=== PATIENT | female | born 1990 | race Hispanic/Latino ===

== ENCOUNTER → 2017-06-07 | Outpatient (CLI) | payer OTHER ==
[~2017-06-07] MED LIST: COLA100C5 PO; IRON18TA2 PO; MIRA3350 PO; OXYC-517 PO; PRENTAB9 PO
--- NOTE | 2017-06-07 13:46 | REP ---
MRI PELVIS: MRI pelvis performed utilizing multiple axial, sagittal, and coronal sequences without IV contrast. Patient has complete placenta previa with a history of two prior sections and this study is performed to evaluate the placenta. The fetus is located in the fundus, in vertex position. Placenta is inferiorly located and completely covers the internal cervical os consistent with complete placenta previa. The bulk of the placenta extends anteriorly along the anterior lower uterine segment, with a portion also extending along the posterior lower uterine segment. The placenta extends further superiorly on the left than on the right. The placenta is heterogeneous in signal with several areas of hypointense bands of signal. There are multiple areas of disruption of the myometrium and myometrial contour along the outer margins of the placenta. 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 There is no definite invasion of adjacent pelvic structures by placenta tissue. 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 Signed by Rome Frazier MD 06/07/2017 05:08 P
== END ==
LOC: M RAD 06:46
PROVIDERS: ATTEND Obstetrics & Gynecology
DX: O44.03 Complete placenta previa NOS or without hemorrhage, third trimester (principal)

== ENCOUNTER 2017-06-30 15:16 | Outpatient (CLI) | payer OTHER ==
[~2017-06-30] VITALS: Ht 162.6 cm; Wt 64.0 kg
[2017-06-30] MEDS ORDERED: PRENTAB9 PO (15:32)
== END 2017-06-30 16:51 | disposition home or self-care (01) ==
LOC: M LDO 15:16
PROVIDERS: ATTEND Obstetrics & Gynecology
DX: O26.893 Other specified pregnancy related conditions, third trimester (principal); Z3A.32 32 weeks gestation of pregnancy; N89.9 Noninflammatory disorder of vagina, unspecified; Z88.8 Allergy status to other drugs, medicaments and biological substances

== ENCOUNTER 2017-08-08 17:36 | Emergency (ER) | payer OTHER ==
[~2017-08-08] VITALS: Ht 162.6 cm; Wt 75.0 kg
[2017-08-08 17:36] VITALS: BP 119/72
[~2017-08-08 17:36] MED LIST changes: -COLA100C5 PO; -IRON18TA2 PO; -MIRA3350 PO; -OXYC-517 PO
[2017-08-08] MEDS ORDERED: COLA100C5 PO (17:45)
[2017-08-08] MEDS ORDERED: MIRA3350 PO (17:45)
[2017-08-08] MEDS ORDERED: IRON18TA2 PO (17:45)
[2017-08-08] MEDS ORDERED: OXYC-517 PO (17:45)
--- NOTE | 2017-08-08 19:05 | REP ---
Clinical: Pain and swelling . Technique: Frazier scale and color Doppler evaluation using linear high frequency transducer. Findings: Ultrasound examination of the right lower extremity deep venous structures from the common femoral vein to the popliteal vein demonstrates normal compressibility flow and wave patterns in response to respiration and augmentation. There is no evidence for deep venous thrombosis. Impression: No evidence for deep venous thrombosis. Signed by Hung Cid MD 08/08/2017 06:56 P
== END 2017-08-08 19:21 | disposition home or self-care (01) ==
LOC: M ED 17:36
DX: O90.89 Other complications of the puerperium, not elsewhere classified (principal); M79.604 Pain in right leg; R82.99 Other abnormal findings in urine; Z88.1 Allergy status to other antibiotic agents; Z88.8 Allergy status to other drugs, medicaments and biological substances; Z79.899 Other long term (current) drug therapy

== ENCOUNTER → 2018-11-25 | Outpatient (CLI) | payer OTHER ==
[~2018-11-25] MED LIST changes: +COLA100C5 PO; +IRON18TA2 PO; +MIRA3350 PO; +OXYC-517 PO
--- NOTE | 2018-11-25 18:11 | REP ---
Clinical: Cough and shortness of breath . Comparison: None . Technique: PA and lateral. Findings: The mediastinum and cardiac silhouette are normal. The lung greene are clear and without acute consolidation, effusion, or pneumothorax. The skeletal structures are intact and normal. Impression: 1. No acute cardiopulmonary process. Electronically Signed by Hung Cid MD 11/25/2018 06:02 P
== END ==
LOC: M LRY 17:44
PROVIDERS: ATTEND Physician Assistant
DX: R05 Cough (principal); R06.02 Shortness of breath
CPT/HCPCS: 71046; 87804; G0463

== ENCOUNTER → 2019-06-10 | Outpatient (REF) | payer OTHER | LOC: M LAB REF 10:42 | PROVIDERS: ATTEND Physician Assistant | DX: R30.0 Dysuria (principal) ==

== ENCOUNTER → 2019-09-14 | Outpatient (CLI) | payer OTHER ==
[~2019-09-14] MED LIST changes: +ALBU8.5H IH; +ALL10TAB29 PO; +LIDO5DIS41 TD; +METH1TAB40 PO
[2019-09-14 15:09] LABS: COLLAGEN EPINEPHRINE 139 SECONDS (74-162)
== END ==
LOC: M LAB 14:01
PROVIDERS: ATTEND Ophthalmology
DX: H50.15 Alternating exotropia (principal)

== ENCOUNTER 2019-09-21 19:24 | Emergency (ER) | payer OTHER ==
[~2019-09-21] VITALS: Ht 162.6 cm; Wt 68.2 kg
[~2019-09-21 19:24] MED LIST changes: -ALBU8.5H IH; -ALL10TAB29 PO; -LIDO5DIS41 TD; -METH1TAB40 PO
[2019-09-21] MEDS ORDERED: METH1TAB40 PO (19:33)
[2019-09-21] MEDS ORDERED: LIDO5DIS41 TD (19:33)
[2019-09-21] MEDS ORDERED: ALL10TAB29 PO (19:35)
[2019-09-21] MEDS ORDERED: ALBU8.5H IH (19:35)
--- NOTE | 2019-09-21 22:56 | REPVR ---
PROCEDURE INFORMATION: Exam: CT Lumbar Spine Without Contrast Exam date and time: 09/21/2019 10:11 PM Clinical history: 29 years old, female; Low back pain TECHNIQUE: Imaging protocol: Computed tomography images of the lumbar spine without contrast. Radiation optimization: All CT scans at this facility use at least one of these dose optimization techniques: automated exposure control; mA and/or kV adjustment per patient size (includes targeted exams where dose is matched to clinical indication); or iterative reconstruction. COMPARISON: No relevant prior studies available. FINDINGS: Vertebrae: Normal spinal curvature, vertebral body heights, and alignment. No spinal fracture or acute subluxation. Discs/Spinal canal/Neural foramina: Minimal L4-5 disc bulging with a left subarticular disc protrusion, correlate for left L5 radiculopathy. Minimal L5-S1 disc bulging. No spinal or foraminal significant stenosis. Gallbladder and bile ducts: Cholelithiasis. Soft tissues: Unremarkable. IMPRESSION: 1. No acute vertebral fracture/subluxation. 2. Minimal L4-5 disc bulging with a left subarticular disc protrusion, correlate for left L5 radiculopathy. Electronically signed by: Shamir Lott On 09/21/2019 22:56:15 PM
[2019-09-21] MEDS ORDERED: traMADol 50 MG TAB PO ONE (23:30)
[2019-09-21 23:35] VITALS: BP 106/62
== END 2019-09-21 23:37 | disposition home or self-care (01) ==
LOC: M ED 19:24
DX: M54.5 Low back pain (principal); J45.909 Unspecified asthma, uncomplicated; M51.26 Other intervertebral disc displacement, lumbar region; M54.16 Radiculopathy, lumbar region; Z79.899 Other long term (current) drug therapy; Z88.6 Allergy status to analgesic agent; Z88.8 Allergy status to other drugs, medicaments and biological substances; Z88.1 Allergy status to other antibiotic agents

== ENCOUNTER → 2019-11-12 | Outpatient (CLI) | payer OTHER ==
[~2019-11-12] MED LIST changes: +ALBU8.5H IH; +ALL10TAB29 PO; +LIDO5DIS41 TD; +METH1TAB40 PO
--- NOTE | 2019-11-12 18:54 | REP ---
Chest x-ray: Two views. History: Cough . Comparison study: November 25, 2018 . Findings: The lungs are well inflated and free of infiltrate. The pleural angles are sharp. The heart size is normal. Pulmonary vasculature is not increased. No significant bony abnormality is seen. Impression: Negative chest x-ray. Electronically Signed by Mukund Cortez MD 11/12/2019 06:45 P
== END ==
LOC: M LRY 17:11
PROVIDERS: ATTEND Physician Assistant
DX: R05 Cough (principal)
CPT/HCPCS: 71046; 87804; G0463

== ENCOUNTER → 2020-01-25 | Outpatient (REF) | payer OTHER | LOC: M SFHCLERA 14:58 | PROVIDERS: ATTEND Nurse Practitioner Family | DX: R53.81 Other malaise (principal) ==

== ENCOUNTER 2021-05-07 12:51 | Emergency (ER) | payer OTHER ==
[~2021-05-07] VITALS: Ht 162.6 cm; Wt 75.0 kg
[~2021-05-07 12:51] MED LIST changes: -ALL10TAB29 PO; +CETI-24 PO; +METH-1164 PO; -METH1TAB40 PO
[2021-05-07] MEDS ORDERED: NS 1,000 ML IV ONE (14:35)
[2021-05-07] MEDS ORDERED: ACETAMINOPHEN 325 MG TAB PO ONE (14:35)
[2021-05-07 15:14] LABS: BASO % 0.4 % (0.0-1.0); EOS # 0.1 10^3/uL (0.0-0.5); EOS % 1.5 % (0.0-3.0); HEMATOCRIT 42.9 % (36.0-47.0); HEMOGLOBIN 14.8 g/dl (12.0-15.5); LYMPH # 1.8 10^3/uL (1.5-5.0); LYMPH % 24.9 % (24.0-44.0); MEAN CORPUSCULAR HEMOGLOBIN 30.4 pg (27.0-33.0); MEAN CORPUSCULAR HGB CONC 34.5 g/dl (32.0-36.5); MEAN CORPUSCULAR VOLUME 88.1 fl (80.0-96.0); MONO # 0.5 10^3/uL (0.0-0.8); MONO % 6.4 % (2.0-8.0); NEUTROPHILS # 4.9 10^3/uL (1.5-8.5); NEUTROPHILS % 66.7 % (36.0-66.0); PLATELET COUNT, AUTOMATED 243 10^3/uL (150-450); RED BLOOD COUNT 4.87 10^6/uL (4.00-5.40); WHITE BLOOD COUNT 7.3 10^3/uL (4.0-10.0)
[2021-05-07 15:37] LABS: BLOOD UREA NITROGEN 12 MG/DL (7-18); CALCIUM LEVEL 9.1 MG/DL (8.5-10.1); CARBON DIOXIDE LEVEL 30 MEQ/L (21-32); CHLORIDE LEVEL 103 MEQ/L (98-107); GLOMERULAR FILTRATION RATE > 60.0 (>60); GLUCOSE, FASTING 78 MG/DL (70-100); POTASSIUM SERUM 3.6 MEQ/L (3.5-5.1); SODIUM LEVEL 139 MEQ/L (136-145)
[2021-05-07] MEDS ORDERED: CIPR-249 PO (16:35)
[2021-05-07] MEDS ORDERED: CIPROFLOXACIN 500MG TABLET PO ONE (16:40)
[2021-05-07 17:03] VITALS: BP 112/65
== END 2021-05-07 17:07 | disposition home or self-care (01) ==
LOC: M ED 12:51
DX: B34.2 Coronavirus infection, unspecified (principal); N39.0 Urinary tract infection, site not specified; R51.9 Headache, unspecified; J45.909 Unspecified asthma, uncomplicated; Z88.8 Allergy status to other drugs, medicaments and biological substances; Z79.899 Other long term (current) drug therapy

== ENCOUNTER → 2022-10-11 | Outpatient (REF) | payer OTHER ==
[~2022-10-11] MED LIST changes: +CIPR-249 PO
== END ==
LOC: M LAB REF 20:15
PROVIDERS: ATTEND Physician Assistant
DX: R30.0 Dysuria (principal)

== ENCOUNTER → 2023-06-25 | Outpatient (REF) | payer OTHER ==
[2023-06-25 13:58] LABS: BACTERIA, URINE AUTO NEGATIVE (NEGATIVE); MUCUS, URINE SMALL (NEGATIVE); RBC, URINE AUTO 0 /HPF (0-3); SQUAMOUS EPITHELIAL CELL UR AU 1 /HPF (0-6); WBC, URINE AUTO 0 /HPF (0-3)
== END ==
LOC: M SMT 12:59
PROVIDERS: ATTEND Specialist
DX: N39.0 Urinary tract infection, site not specified (principal)
CPT/HCPCS: 81015; 87086; G0463